=== PATIENT | female | born 1950 | race Caucasian/White ===

== ENCOUNTER → 2017-08-05 | Outpatient (CLI) | payer MEDICARE, OTHER ==
[~2017-08-05] MED LIST: CALC-649 PO; CALC-852 PO; CEFU250T11 PO; FLUT16SP19 NS; LEV125 PO; LEV137 PO; LEVO137T23 PO; LORA-802 PO; PNEI IJ; PNEU0.5D3 IM; PROM-110 PO
--- NOTE | 2017-08-06 09:40 | RADIOLOGY IMAGING REPORT ---
FACILITY: [facility] - [place] PATIENT NAME: JESSICA BERGER : [id number] MR: [id number] V: [id number] EXAM DATE: [id number] ORDERING PHYSICIAN: JAMAL JAMES TECHNOLOGIST: Anahy Cortez PROCEDURE:BILATERAL SCREENING MAMMOGRAPHY WITH TOMOGRAPHY & COMPUTER ASSISTED DIAGNOSIS COMPARISON:Compared to priors. INDICATIONS:SCREENING FINDINGS: Scattered fibroglandular densities are present in both breasts. A small group of calcifications is present in the Left retroareolar region, accentually unchanged. Benign appearing asymmetries are scattered bilaterally, unchanged. DIAGNOSTIC CATEGORY 1--NEGATIVE. RECOMMENDATIONS: ROUTINE MAMMOGRAM AND CLINICAL EVALUATION. IMPRESSION: BIRADS 1: Negative. Recommendations: bilateral screening mammography in 1 year. Dictated by: Eric Light M.D. on 08/05/2017 at 14:45 Transcribed by: MARKUS on 08/05/2017 at 15:05 Approved by: Aris Hdz M.D. on 08/06/2017 at 9:39 [facility]
== END ==
LOC: MAMO 06:11
PROVIDERS: ATTEND Internal Medicine
DX: Z12.31 Encounter for screening mammogram for malignant neoplasm of breast (principal)
CPT/HCPCS: 77063; 77067

== ENCOUNTER → 2018-08-10 | Outpatient (CLI) | payer MEDICARE, OTHER ==
[~2018-08-10] MED LIST changes: +ASPI-692 PO; +DIPH-740 PO; +IBUP-56 PO
--- NOTE | 2018-08-10 15:43 | RADIOLOGY IMAGING REPORT ---
FACILITY: [facility] - [place] PATIENT NAME: Ana Cristina Harmon : 1950 MR: [id number] V: [id number] EXAM DATE: ORDERING PHYSICIAN: RAMONA MARTINEZ TECHNOLOGIST: Location: [facility] - [place] Patient: Ana Cristina Harmon : 1950 Visit/Account:[id number] Date of Sevice: 08/10/2018 DEXA Scan Clinical history: Osteopenia. Comparison: DEXA scan from 04/25/2008. LUMBAR SPINE: The bone mineral density (BMD) measured from L1-L4 correlates with a Z-score of -1 and a T-score of - 2 which is osteopenia as defined by the World Health Organization. The corresponding risk of fractur e in the lumbar spine is 4 times increased compared with a young adult reference population. This va lue has decrease by 4.9 % since the prior study. More than 5% change is considered significant. HIP: Bone mineral density (BMD) measured in the LEFT total hip region correlates with a Z-score by 0.7 and a T-score of -1.7 which is osteopenia as defined by the World Health Organization. The correspondin g risk of fracture in the hip is 3-4 times increased compared to a young adult reference population. This value has decrease by 2.7 % since the prior study. More than 5% change is considered significan t. T score left femoral neck -1.9 Bone mineral density (BMD) measured in the Femoral Neck region measures 0.774 g/cm?. IMPRESSION: 1. Lumbar spine: Osteopenia. There has been 4.9% decrease in the bone mineral density since the pre vious exam. 2. Left Total Hip: Osteopenia. There has been 2.7% decrease in the bone mineral density since the p revious exam. 3. Femoral Neck: Bone Mineral Density is 0.774 g/cm? The next DEXA scan of this patient should include the following sites: L1-L4 and the left hip. FRAX? WHO Fracture Risk Assessment Tool link: <http://www.shef.ac.uk/FRAX/tool.jsp?locationValue=9> PLEASE NOTE: 1) The World Health Organization defines low BMD as follows: T-score Normal > -1 Osteopenia < -1 and > -2.5 Osteoporosis < -2.5 without fractures Established osteoporosis < -2.5 with fractures 2) In general, you may wish to consider: Diagnosis Treatment Follow-up DEXA Normal BMD Prevention 2-3 years Osteopenia Prevention/therapy 1-2 years Osteoporosis Therapy Yearly 3) Fracture risk estimated from the T-score is more accurate for vertebral fractures (often spontane ous) than for hip fractures. Report Dictated By: Josselin Montes MD at 08/10/2018 3:37 PM Report E-Signed By: Josselin Montes MD at 08/10/2018 3:38 PM WSN:[email or web address]
--- NOTE | 2018-08-11 09:40 | RADIOLOGY IMAGING REPORT ---
FACILITY: [facility] PATIENT NAME: JESSICA BERGER : [id number] MR: [id number] V: [id number] EXAM DATE: [id number] ORDERING PHYSICIAN: RAMONA MARTINEZ TECHNOLOGIST: Mitzi Lawler PROCEDURE: BILATERAL DIGITAL SCREENING MAMMOGRAM WITH CAD ASSISTED INTERPRETATION & 3D TOMOSYNTHESIS REASON FOR STUDY: Screening FAMILY HISTORY OF BREAST CANCER: Mother BREAST PROCEDURES/TREATMENTS: None COMPARISON: 08/05/17, 07/28/16, 06/27/15, 06/06/14, 06/16/13, 06/08/12 VIEWS OBTAINED: Bilateral 2D & 3D full field CC & MLO BREAST DENSITY: There are scattered areas of fibroglandular density throughout the breasts. MAMMOGRAM FINDINGS: The parenchymal pattern has remained stable allowing for difference in mammographic technique & patient positioning. Coarse appearing calcifications are again seen in the Left retroareolar breast. IMPRESSION: BIRADS 2: Benign finding. DIAGNOSTIC CATEGORY 2--BENIGN FINDING. RECOMMENDATIONS: ROUTINE MAMMOGRAM AND CLINICAL EVALUATION. Dictated by: Josselin Montes M.D. on 08/10/2018 at 16:04 Transcribed by: MARTHA on 08/11/2018 at 6:50 Approved by: Josselin Montes M.D. on 08/11/2018 at 9:39 [facility]
== END ==
LOC: MAMO 00:18
PROVIDERS: ATTEND Family Medicine
DX: Z12.31 Encounter for screening mammogram for malignant neoplasm of breast (principal); M85.89 Other specified disorders of bone density and structure, multiple sites
CPT/HCPCS: 77063; 77067; 77080